=== PATIENT | male | born 1975 | race African-American/Black ===

== ENCOUNTER 2019-07-18 05:59 | Emergency (ER) | payer OTHER, SELFPAY ==
[2019-07-18] VITALS (13 sets, daily range): BP systolic 129–145; BP diastolic 79–102; PULSE 85–100; RESP 16–20; O2SAT 95–100; BMI 36.8
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
[2019-07-18] MEDS: ondansetron 2 mg/ML SDV 2 mL 4 MG IVP (06:25)
[2019-07-18] MEDS: morphine 4 mg/mL SDV 1 mL IVP ×2 (06:34→12:25)
[2019-07-18 06:46] LABS: Basophils % 0.5 %; Eosinophils # 0.1 10^3/uL (0.0-0.8); Eosinophils % 1.7 %; Hemoglobin 13.1 g/dL (11.7-16.6); Lymphocytes # 2.8 10^3/uL (0.8-4.8); Lymphocytes % 46.7 %; Mean Corpuscular Hemoglobin 27.9 pg (28.0-34.0); Mean Corpuscular Volume 87.2 fL (80-94); Mean Platelet Volume 10.1 fL (7.4-10.4); Monocytes # 0.5 10^3/uL (0.2-0.9); Monocytes % 8.1 %; Neutrophils # 2.5 10^3/uL (1.8-7.7); Neutrophils % 42.3 %; Nucleated Red Blood Cells % 0 %; Platelet Count 234 10^3/cmm (130-400); Red Cell Distribution Width 12.1 % (12.1-15.1); White Blood Count 5.9 10^3/uL (4.0-10.0)
--- NOTE | 2019-07-18 06:59 | PC.NURSE ---
Patient back from CT
[2019-07-18 07:01] LABS: Blood Urea Nitrogen 14 mg/dL (6-20); Calcium 9.3 mg/dL (8.5-10.5); Carbon Dioxide 24 mmol/L (22-29); Chloride 103 mmol/L (98-107); Glomerular Filtration Rate 79.6 mL/min (90-130); Glucose 138 mg/dL (65-115); Osmolality Calculated 290 mOsm/kg (285-295); Sodium 141 mmol/L (136-145)
[2019-07-18 07:02] LABS: Alcohol Level < 10 mg/dL (0-10)
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
[2019-07-18 07:57] LABS: Specific Gravity, Urine 1.025 (1.005-1.030); Urine Appearance Clear (CLEAR); Urine Color Yellow (Yellow); pH Urine 5 (5-7)
[2019-07-18 07:58] LABS: Add Urine Microscopic? YES; Bilirubin Urine Neg (NEGATIVE); Blood Urine 2+ (Negative); Glucose Urine UA Norm (Normal); Ketones Urine Negative (Negative); Leukocyte Esterase Urine Negative (Negative); Nitrate Urine Negative (Negative); Protein Urine Trace (Negative); Urobilinogen Urine Norm (Negative)
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
[2019-07-18 08:23] LABS: Bacteria Urine TRACE; Coarse Granular Casts Urine 0-4 /lpf; Hyaline Casts Urine 0-4; Mucus Urine 1+; RBC Urine 0-4 /hpf (0-2); Squamous Epithelial Cell Urine 0-4 (0-5); WBC Urine 0-4 /hpf (0-5)
[2019-07-18 08:24] LABS: Add Urine Culture? No
[2019-07-18] MEDS: iohexol 300 mg/mL 100 mL Btl IV (08:32)
[2019-07-18] MEDS: morphine 4 mg/mL SDV 1 mL 2 MG IVP (09:36)
[2019-07-18] MEDS: ketorolac 60 mg/2 mL INJ IVP (09:37)
[2019-07-18] MEDS: tetanus-dipt-pertussis 0.5 mL SDV IM (10:54)
[2019-07-18 11:22] LABS: Hemoglobin 13.7 g/dL (11.7-16.6)
[2019-07-18] MEDS: mupirocin oint 22 gm 1 APPLIC TOPICAL (12:06)
[2019-07-18] MEDS: LORazepam 2 mg/mL INJ 1 mL 1 MG IVP (12:25)
== END 2019-07-18 12:30 | disposition short-term general hospital (02) ==
PROVIDERS: Emergency Provider Family Medicine
DX: S32.019A Unspecified fracture of first lumbar vertebra, initial encounter for closed fracture (principal); S32.029A Unspecified fracture of second lumbar vertebra, initial encounter for closed fracture; S32.039A Unspecified fracture of third lumbar vertebra, initial encounter for closed fracture; S32.049A Unspecified fracture of fourth lumbar vertebra, initial encounter for closed fracture; S36.892A Contusion of other intra-abdominal organs, initial encounter; V68.0XXA Driver of heavy transport vehicle injured in noncollision transport accident in nontraffic accident, initial encounter; Y92.411 Interstate highway as the place of occurrence of the external cause
CPT/HCPCS: 36415; 70450; 72125; 73030; 74177; 80048; 80307; 81001; 85018; 85025; 90471; 90715; 96374; 96375; 96376; 99283; 99285; J1885; J2060; J2270; J2405; Q9967